=== PATIENT | female | born 1935 | race Caucasian/White ===

== ENCOUNTER 2019-07-05 14:20 | Outpatient (CLI) | payer MEDICARE, MEDICAID, SELFPAY ==
--- NOTE | 2019-07-05 14:33 | MM_ITS ---
WS: [id number] BILATERAL DIGITAL SCREENING MAMMOGRAPHY WITH CAD CLINICAL INFORMATION: SCREENING HISTORY: Screening mammogram. No current complaints. COMPARISON: January 12, 2017 and multiple prior mammograms dating back to 2012 TECHNIQUE: Bilateral CC and MLO views. FINDINGS: The breasts are composed of heterogeneous fibroglandular density tissue, which can limit the detectio n of small underlying mass lesions. Increasing spiculated dense focal asymmetric density posterior depth right breast inner quadrant near the chest wall. This appears slightly increased in size since 2017. Surgical excision was recommende d of this lesion in 2011 which was not performed. THIS LESION IS SUSPICIOUS AND RECOMMEND RIGHT DIAGN OSTIC MAMMOGRAM AND ULTRASOUND FOR FURTHER CHARACTERIZATION. Left breast is unchanged. Vascular calcification. MM/[place] [id number] IMPRESSION: BI-RADS: 0-Incomplete: Need additional imaging evaluation FOLLOW UP: Need Additional Imaging
== END 2019-07-05 14:21 | disposition home or self-care (01) ==
PROVIDERS: Family Provider Registered Nurse; PCP Registered Nurse; Visit Provider Registered Nurse
DX: Z12.31 Encounter for screening mammogram for malignant neoplasm of breast (principal)
CPT/HCPCS: 77067

== ENCOUNTER 2019-07-29 11:37 | Outpatient (CLI) | payer MEDICARE, MEDICAID, SELFPAY ==
--- NOTE | 2019-07-29 11:45 | US_ITS ---
WS: [id number] RIGHT DIGITAL MAMMOGRAPHY WITH CAD CLINICAL INFORMATION: ABNORMAL FINDING ON MAMMOGRAPHY COMPARISON: July 05, 2019 TECHNIQUE: 4 views of the right breast were obtained. FINDINGS: The right breast is composed of heterogeneous fibroglandular density tissue, which can limit the dete ction of small underlying mass lesions. Vascular calcification. Again seen is the spiculated focal asymmetric density posterior depth right breast inner quadrant manish r the chest wall. This persists on spot compression views. Ultrasound is pending. ULTRASOUND BREAST RIGHT TECHNIQUE: Ultrasound right breast focused area of concern. CLINICAL INFORMATION: ABNORMAL FINDING ON MAMMOGRAPHY COMPARISON: None. FINDINGS: Ultrasound right breast 11:00 position. Hypoechoic irregular taller than wide lesion at the 1:00 posi tion 5 cm from the nipple HIGHLY SUSPICIOUS FOR MALIGNANCY. Internal vascularity. RECOMMEND FURTHER E VALUATION WITH ULTRASOUND GUIDED BIOPSY. Additional hypoechoic well-circumscribed lesion at the 11:00 position measuring 4.8 x 3.8 x 4.9 mm is indeterminant and also recommend additional evaluation of this area with ultrasound-guided biopsy. US/US breast RT complete [id number] IMPRESSION: BI-RADS: 5-Highly Suggestive of Malignancy FOLLOW UP: US Guided Biopsy Recommended
== END 2019-07-29 11:38 | disposition home or self-care (01) ==
LOC: RADSHAW 11:42
PROVIDERS: Family Provider Family Medicine; PCP Registered Nurse; Visit Provider Registered Nurse
DX: R92.8 Other abnormal and inconclusive findings on diagnostic imaging of breast (principal); N64.89 Other specified disorders of breast
CPT/HCPCS: 76641; 77065

== ENCOUNTER 2021-09-24 12:15 | Observation (INO) | payer MEDICARE, MEDICAID, SELFPAY ==
[2021-09-24] VITALS (14 sets, daily range): BP systolic 94–138; BP diastolic 45–80; PULSE 64–113; RESP 15–23; TEMP 36.6–36.8; O2SAT 93–98; BMI 24.2
--- NOTE | 2021-09-24 12:20 | ECG_ITS ---
[facility] Test Date: 2021-09-24 Pat Name: Arleen Clinton Department: Room: Gender: Female Rn Call Center: : 1935 Requested By: Mehdi Perez Order Number: [id number] Shine MD: Teofilo Perez M.D. Measurements Intervals [place] Rate: 100 P: NV: QRS: -35 QRSD: 85 T: 68 QT: 350 QTc: 452 Interpretive Statements ATRIAL FIBRILLATION WITH RAPID VENTRICULAR RESPONSE WITH ABERRANT CONDUCTION OR VENTRICULAR PREMATURE COMPLEXES LEFT AXIS DEVIATION [QRS AXIS < -30] SEPTAL MYOCARDIAL INFARCTION , PROBABLY OLD [40+ ms Q WAVE IN V1/V2] Compared to ECG 10/25/2018 11:04:32 Aberrant conduction of supraventricular beat(s) now present Ventricular premature complex(es) now present Myocardial infarct finding now present Sinus rhythm no longer present ST (T wave) deviation no longer present Electronically Signed On 09-24-2021 22:44:20 CDT by Teofilo Perez M.D. [id number]
[2021-09-24] MEDS: dilTIAZem 60 mg Tablet PO (12:38)
[2021-09-24 12:45] LABS: Basophils % 0.5 %; Eosinophils # 0.1 10^3/uL (0.0-0.8); Eosinophils % 1.2 %; Hematocrit 36.4 % (37.0-47.0); Hemoglobin 11.9 g/dL (11.5-15.3); Lymphocytes # 0.8 10^3/uL (0.8-4.8); Lymphocytes % 10.6 %; Mean Corpuscular HGB Conc 32.7 g/dL (30.0-36.0); Mean Corpuscular Hemoglobin 28.5 pg (28.0-34.0); Mean Corpuscular Volume 87.3 fl (81-99); Mean Platelet Volume 11.4 fL (7.4-10.4); Monocytes # 0.7 10^3/uL (0.2-0.9); Monocytes % 9.5 %; Neutrophils # 5.67 10^3/uL (1.8-7.7); Neutrophils % 77.9 %; Nucleated Red Blood Cells % 0 %; Platelet Count 182 10^3/cmm (130-400); Red Blood Count 4.17 10^6/uL (4.1-5.3); Red Cell Distribution Width 13.1 % (12.1-15.1); White Blood Count 7.3 10^3/uL (4.0-10.0)
--- NOTE | 2021-09-24 12:50 | ED_ITS ---
HPI - Arrhythmia/Palpitations General: Chief Complaint: Arrhythmia/Palpitations Stated Complaint: WEAK, NEAR SYNCOPE Time Seen by Provider: 09/24/21 12:18 Source: patient Mode of arrival: EMS Limitations: no limitations History of Present Illness: 86-year-old female presents to the emergency room with complaints of rapid heart rate. She had a near syncopal episode and was feeling generally weak she ended up calling EMS on arrival though the EKG she was found to be in A. fib with RVR and was given 15 mg IV Cardizem. Her rate has been controlled and she is feeling much better however she is still in atrial fibrillation she denies any orthopnea denies any chest pain she had previously been diagnosed with A. fib in the past. He is not on any anticoagulants or anything for rate control. MD complaint: rapid heart beat, heart racing and irregular heart beat Onset (ago): hour(s) Duration: constant Severity: severe Context: occurred during rest Associated symptoms: Reports pre-syncope; Deny anxiety, cough, diaphoresis, muscle cramps, nausea, paresthesias, sense of impending doom, short of breath, syncope or vomiting Review of Systems Const: Denies: diaphoresis ENMT: Denies: throat pain, ear or mastoid pain, nasal discharge or nasal congestion Card: Reports: palpitations, irregular heart rhythm, lightheadedness, pre- syncope and dyspnea on exertion; Denies: chest pain, swelling of feet/ankles or syncope Resp: Denies: dyspnea, productive cough or non-productive cough GI: Denies: abdominal pain, nausea or vomiting : Denies: flank pain, difficulty voiding, dysuria, urinary frequency or u rinary urgency Musc: Denies: muscle cramps Skin/Breast: Denies: rash or pruritus Psych: Denies: anxiety PFS ED PFSH: Medical History COPD (chronic obstructive pulmonary disease) History of multiple pulmonary nodules likely benign, had bronchoscopic evaluation in 2018 HTN (hypertension) Hypothyroidism associated with surgical procedure Papillary thyroid carcinoma metastatic, history of surgery, radiation Surgical History History of cataract surgery History of radical neck dissection (~2018) right, for metastatic papillary thyroid carcinoma with split thickness skin graft History of thyroidectomy (~2004) Social History Smoking and tobacco status: former smoker Alcohol intake: never Physical Exam Const: GENERAL APPEARANCE: cooperative and comfortable ORIENTATIO N/CONSCIOUSNESS: Yes awake, Yes oriented to person, Yes oriented to place and Yes oriented to time HENMT: COMMON NORMALS: normocephalic, atraumatic and hearing grossly normal bilaterally HEAD & SCALP: normocephalic and atraumatic Neck/C-Spine: COMMON NORMALS: no JVD Resp: COMMON NORMALS: normal respiratory effort, No retractions, No use of accessory muscles and clear to auscultation bilaterally AUSCULTATION: clear to auscultation bilaterally Cardio: COMMON NORMALS: no JVD RATE: tachycardic RHYTHM: abnormal rhythm irregularly irregular GI: COMMON NORMALS: Soft to palpation and No hepatosplenomegaly present AUSCULTATION: Yes normoactive bowel sounds PALPATION: Yes Soft to palpation, No Tenderness to palpation present (GI), No Guarding due to palpation present (GI) and Yes No hepatosplenomegaly present Extremity: COMMON NORMALS: normal to inspection, capillary refill normal, no clubbing, cyanosis or edema, no calf tenderness and no pedal edema Neuro: SENSORIUM/ORIENTATION: Yes oriented to person, Yes oriented to place and Yes oriented to time Skin: COMMON NORMALS: no rashes or lesions noted GENERAL SKIN EXAM: no rashes or lesions noted Course Vital Signs: Vital signs: Vital Signs Temperature 98.2 F 09/24/21 12:23 Pulse Rate 94 09/24/21 13:04 Respiratory Rate 17 09/24/21 13:04 Blood Pressure 116/73 09/24/21 13:04 Pulse Oximetry 96 09/24/21 13:04 MDM - Arrhythmia/Palpitations Medical Decision Making New onset atrial fibrillation with RVR. Improved after EMS gave IV Cardizem which we backed up with p.o. Cardizem. Concerned about her syncope near syncopal episode as well as needing further work-up and evaluation for rate control discussed with hospitalist orders written. Medical Records I reviewed the patient's medical records. Lab Data I reviewed the patient's lab results. : 09/24/21 12:30 09/24/21 12:30 Laboratory Results WBC 7.3 10^3/uL (4.0-10.0) 09/24/21 12:30 RBC 4.17 10^6/uL (4.1-5.3) 09/24/21 12:30 Hgb 11.9 g/dL (11.5-15.3) 09/24/21 12:30 Hct 36.4 % (37.0-47.0) L 09/24/21 12:30 MCV 87.3 fl (81-99) 09/24/21 12:30 MCH 28.5 pg (28.0-34.0) 09/24/21 12: MCHC 32.7 g/dL (30.0-36.0) 09/24/21 12: RDW 13.1 % (12.1-15.1) 09/24/21 12: Plt Count 182 10^3/cmm (130-400) 09/24/21 12: MPV 11.4 fL (7.4-10.4) H 09/24/21 12:30 Neut % (Auto) 77.9 % 09/24/21 12:30 Lymph % (Auto) 10.6 % 09/24/21 12:30 [place] % (Auto) 9.5 % 09/24/21 12:30 Eos % (Auto) 1.2 % 09/24/21 12:30 Baso % (Auto) 0.5 % 09/24/21 12:30 Neut # (Auto) 5.67 10^3/uL (1.8-7.7) 09/24/21 12: Lymph # (Auto) 0.8 10^3/uL (0.8-4.8) 09/24/21 12:30 [place] # (Auto) 0.7 10^3/uL (0.2-0.9) 09/24/21 12:30 Eos # (Auto) 0.1 10^3/uL (0.0-0.8) 09/24/21 12:30 Baso # (Auto) 0.0 10^3/uL (0.0-0.1) 09/24/21 12:30 Nucleated RBC % (auto) 0 % 09/24/21 12:30 Nucleated RBCs # 0.0 /100WBC 09/24/21 12:30 Sodium 138 mmol/L (136-145) 09/24/21 12:30 Potassium 3.3 mmol/L (3.5-5.1) L 09/24/21 12:30 Chloride 98 mmol/L (98-107) 09/24/21 12:30 Carbon Dioxide 24 mmol/L (22-29) 09/24/21 12:30 Anion Gap 19.3 (5-19) H 09/24/21 12:30 BUN 10 mg/dL (8-23) 09/24/21 12:30 Creatinine 0.9 mg/dL (0.5-0.9) 09/24/21 12:30 GFR Calculation Not Reportable 09/24/21 12:30 Glucose 134 mg/dL (65-115) H 09/24/21 12:30 Calculated Osmolality 287 mOsm/kg (285-295) 09/24/21 12:30 Calcium 9.0 mg/dL (8.5-10.5) 09/24/21 12:30 Phosphorus 2.6 mg/dL (2.5-4.5) 09/24/21 12:30 Magnesium 1.8 mg/dL (1.7-2.3) 09/24/21 12:30 Total Bilirubin 0.5 mg/dL (0.15-1.2) 09/24/21 12:30 AST 17 U/L (0-32) 09/24/21 12:30 ALT 11 U/L (0-33) 09/24/21 12:30 Alkaline Phosphatase 65 IU/L (35-105) 09/24/21 12:30 Troponin T Baseline 24 ng/L (0-10) H 09/24/21 12:30 Total Protein 7.4 g/dL (6.6-8.7) 09/24/21 12:30 Albumin 3.9 g/dL (3.5-5.2) 09/24/21 12:30 Globulin 3.5 g/dL (1.3-4.6) 09/24/21 12:30 Lipase 30 U/L (13-60) 09/24/21 12:30 TSH 7.44 uIU/mL (0.27-4.20) H 09/24/21 12:30 Free T4 1.12 ng/dL (0.82-1.77) 09/24/21 12:30 Free T3 2.0 PG/ML (2.0-4.4) 09/24/21 12:30 Urine Color Yellow (Yellow) 09/24/21 12:46 Urine Appearance Hazy (CLEAR) A 09/24/21 12:46 Urine pH 7 (5-7) 09/24/21 12:46 Ur Specific [place] 1.005 (1.005-1.030) 09/24/21 12:46 Urine Protein Neg (Negative) 09/24/21 12:46 Urine Glucose (UA) Norm (Normal) 09/24/21 12:46 Urine Ketones Negative (Negative) 09/24/21 12:46 Urine Blood Neg (Negative) 09/24/21 12:46 Urine Nitrate Negative (Negative) 09/24/21 12:46 Urine Bilirubin Neg (Negative) 09/24/21 12:46 Urine Urobilinogen Neg mg/dL (Negative) 09/24/21 12:46 Ur Leukocyte Esterase Negative (Negative) 09/24/21 12:46 Urine RBC None /hpf (0-2) 09/24/21 12:46 Urine WBC None /hpf (0-5) 09/24/21 12:46 Ur Squamous Epith Cells Rare /hpf (0-5) 09/24/21 12:46 Amorphous Sediment Not Reportable 09/24/21 12:46 Urine Bacteria None /hpf (NONE) 09/24/21 12:46 Discharge Plan Discharge Patient Disposition: Admitted As Inpatient Clinical Impression: Atrial fibrillation, COPD (chronic obstructive pulmonary disease), HTN (hypertension), Papillary thyroid carcinoma, Hypothyroidism associated with surgical procedure Prescriptions: No Action cetirizine 10 mg tablet 10 mg PO DAILY@12 0RF hydrocodone-acetaminophen 5-325 mg tablet 1 tab PO Q4H PRN (Reason: Pain) 0RF Stool Softener-Stimulant Laxat 8.6-50 mg Tablet 1 tab PO .THREE TIMES A WEEK 0RF Vitamin B-12 1,000 mcg Tablet 1,000 mcg PO DAILY 0RF amlodipine 5 mg tablet 5 mg PO QPM 0RF levothyroxine 25 mcg tablet 25 mcg PO DAILY@05 0RF potassium chloride 20 mEq tablet,ER particles/crystals 20 meq PO BID 0RF FeroSul 325 mg (65 mg iron) tablet 325 mg PO DAILY@13 0RF montelukast 10 mg tablet 10 mg PO BEDTIME 0RF albuterol sulfate 90 mcg/actuation HFA aerosol inhaler 2 puff INHALATION Q6H PRN (Reason: Shortness Of Breath) 0RF losartan 100 mg tablet 100 mg PO QAM 0RF naproxen 500 mg tablet 500 mg PO BID PRN (Reason: Pain) 0RF Nasal Stewart (oxymetazoline) 0.05 % Stewart,Non-Aerosol 1 - 2 spray INTRANASAL PRN PRN (Reason: Allergy Symptoms) 0RF Clear Eyes Natural Tears 0.5-0.6 % Drops 1 drp ophthalmic (eye) PRN PRN (Reason: Dry Eyes) 0RF Breo Ellipta 100-25 mcg/dose blister with device 1 ea INHALATION DAILY 0RF Calcium 600 + D(3) 2 tab PO QAM 0RF Referrals: Yudy Alfred FNP [Primary Care Provider] - Coding Level of Care Code ED Charge Machine Operator for Chg Fwd Exam Comprehensive
[2021-09-24 13:23] LABS: Troponin(5th) Baseline 24 ng/L (0-10)
[2021-09-24 13:32] LABS: Alanine Aminotransferase 11 U/L (0-33); Albumin Level 3.9 g/dL (3.5-5.2); Alkaline Phosphatase 65 IU/L (35-105); Anion Gap 19.3 (5-19); Aspartate Amino Transferase 17 U/L (0-32); Blood Urea Nitrogen 10 mg/dL (8-23); Carbon Dioxide 24 mmol/L (22-29); Chloride 98 mmol/L (98-107); Creatinine Clr Calc Pharmacy 44.4802; Globulin 3.5 g/dL (1.3-4.6); Glucose 134 mg/dL (65-115); Lipase 30 U/L (13-60); Magnesium 1.8 mg/dL (1.7-2.3); Osmolality Calculated 287 mOsm/kg (285-295); Potassium 3.3 mmol/L (3.5-5.1); Sodium 138 mmol/L (136-145); Thyroid Stimulating Hormone 7.44 uIU/mL (0.27-4.20); Total Bilirubin 0.5 mg/dL (0.15-1.2); Total Protein 7.4 g/dL (6.6-8.7)
--- NOTE | 2021-09-24 13:40 | P.HP_ITS ---
Providers/Chief Complaint Admitting Physician: Zara Nielsen MD Primary Care Provider: JOE Stephenson Chief Complaint: WEAK, NEAR SYNCOPE History of Present Illness Arleen Clinton is a 86 year old female who presented to the emergency room with chief complaint of almost passing out. She was okay a couple of days ago. Yesterday she maybe felt tired but not really anything else. She has her own place where she stays by herself although is frequently with her daughter and Jose hall Anthony. Today she was by herself. She says that she felt okay lying in bed. As soon as she went to stand up she felt very dizzy and lightheaded. She had what she described as a smothering sensation that came over her associated with palpitations, breathing fast. No chest pain or back pain. Denied any diaphoresis, nausea, vomiting, abdominal pain or diarrhea. Did not have any acute paresthesias. She has been having intermittent numbness in her right upper extremity off and on for a while. Her daughter happened to call and indicated that Mrs. Clinton speech was slurred and she was not acting like herself. An ambulance was called. Upon arrival EMS reports that patient's heart rate was in the 170s. They gave her 15 mg of Cardizem IV. On arrival in the emergency room here today, initial heart rate was 109. Patient received 60 mg of oral Cardizem with improved heart rate to 80s to 90s. EKG noted atrial fibrillation with rapid ventricular response. Patient has no prior history of atrial fibrillation. She has a history of hypertension for which she is on medication but denies any known history of coronary artery disease. 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 Her levothyroxine dosing was changed last month because her thyroid levels were high. She is currently jose ing 25 mcg of levothyroxine daily. Initial troponin was 24. Potassium was slightly low at 3.3. She does chronically take potassium replacement. She has had recent cough productive of sputum. Has known chronic bronchitis and asthma. Cough has probably been more than usual lately along with some allergy symptoms but denies any wheezing. On further review it was learned that patient had a near syncopal, possibly syncopal episode, where she blacked out last month although at that time denies having had any palpitations. It sounds like that was also associated with a position change. Review of Systems Const: Reports: other (still drives); Denies: fever(s), chills, change in appetite or change in weight Eyes: Denies: change in vision ENMT: Reports: nasal congestion (Allergies); Denies: throat pain Card: Reports: palpitations, irregular heart rhythm, lightheadedness and pre- syncope; Denies: chest pain, edema, dyspnea on exertion or orthopnea Resp: Reports: dyspnea and productive cough; Denies: non-productive cough, wheezing, pain on inspiration, hemoptysis or chest congestion GI: Denies: abdominal pain, nausea, vomiting, diarrhea, constipation, h ematochezia or melena : Denies: difficulty voiding or hematuria Musc: Reports: neck pain (site of prior right neck dissection gone ), joint pain (none new) and limited range of motion (right shoulder); Denies: extremity swelling Skin/Breast: Reports: nail changes (big toenails both feet are bruised , no p ain) and other (soft tissue lump left shoulder upper arm at site of prior hepatitis shot); Denies: rash or pruritus Neuro: Reports: numbness in extremities (right upper extremity); Denies: headache(s), weakness in extremities or difficulty walking Psych: Denies: anxiety or depression Endo: Reports: cold intolerance and heat intolerance; Denies: excessive sweating Teddy/Lymph: Reports: easy bruising; Denies: easy bleeding Medications/Allergies Home Medications Medication Instructions Recorded Confirmed Last Taken Type Calcium 600 + D(3) 2 tab PO QAM 09/24/21 09/24/21 09/24/21 10:30 History albuterol sulfate 90 mcg/actuation 2 puff INHALATION Q6H PRN 09/24/21 09/24/21 Unknown History aerosol inhaler amlodipine 5 mg tablet 5 mg PO QPM 09/24/21 09/24/21 09/23/21 History cetirizine 10 mg tablet 10 mg PO DAILY@12 09/24/21 09/24/21 09/23/21 History cyanocobalamin (vitamin B-12) 1,000 mcg PO DAILY 09/24/21 09/24/21 09/23/21 History 1,000 mcg tablet (Vitamin B-12) ferrous sulfate 325 mg (65 mg 325 mg PO DAILY@13 09/24/21 09/24/21 09/23/21 History iron) tablet (FeroSul) fluticasone furoate 100 1 ea INHALATION DAILY 09/24/21 09/24/21 Unknown History mcg-vilanterol 25 mcg/dose inhalation powder (Breo Ellipta) hydrocodone 5 mg-acetaminophen 325 1 tab PO Q4H PRN 09/24/21 09/24/21 Unknown History mg tablet levothyroxine 25 mcg tablet 25 mcg PO DAILY@05 09/24/21 09/24/21 09/24/21 History losartan 100 mg tablet 100 mg PO QAM 09/24/21 09/24/21 09/24/21 History montelukast 10 mg tablet 10 mg PO BEDTIME 09/24/21 09/24/21 09/23/21 History naproxen 500 mg tablet 500 mg PO BID PRN 09/24/21 09/24/21 Unknown History oxymetazoline 0.05 % nasal spray 1 - 2 spray INTRANASAL PRN PRN 09/24/21 09/24/21 Unknown History (Nasal [place] (oxymetazoline)) polyvinyl alcohol-povidone 0.5 1 drp OPHTHALMIC (EYE) PRN PRN 09/24/21 09/24/21 Unknown History %-0.6 % eye drops (Clear Eyes Natural Tears) potassium chloride 20 mEq 20 meq PO BID 09/24/21 09/24/21 09/23/21 History tablet,extended release(part/cryst) sennosides 8.6 mg-docusate sodium 1 tab PO .THREE TIMES A WEEK 09/24/21 09/24/21 09/22/21 History 50 mg tablet (Stool Softener-Stimulant Laxative) Allergies Allergy/AdvReac Type Severity Reaction Status Date / Time Penicillins Allergy ALGY-Swell Verified 09/24/21 12:59 Lip/Tongue/Throat Sulfa (Sulfonamide Allergy ALGY-Swell Verified 09/24/21 12:59 Antibiotics) Lip/Tongue/Throat PFSH Acute PFSH: Medical History (Updated 09/24/21 @ 15:43 by Zara Nielsen MD) Asthma Chronic bronchitis Has home oxygen, uses as needed COVID-19 vaccine administered 2 doses Moderna Former smoker, stopped smoking in distant past 3 para 2 with one miscarriage History of multiple pulmonary nodules likely benign, had bronchoscopic evaluation in 2018 HTN (hypertension) 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, history of surgery, radiation and radioactive iodine treatment Surgical History (Updated 09/24/21 @ 13:55 by Zara Nielsen MD) History of cataract surgery History of radical neck dissection (~2018) right, for metastatic papillary thyroid carcinoma with split thickness skin graft History of thyroidectomy (~2004) Social History (Updated 09/24/21 @ 13:37 by Mehdi Lopez DO) Smoking and tobacco status: former smoker Alcohol intake: never Vitals/I&O/Wt Last Vital Signs Temp 98.2 F 09/24/21 12:23 Pulse 94 09/24/21 13:04 Resp 17 09/24/21 13:04 BP 116/73 09/24/21 13:04 Pulse Ox 96 09/24/21 13:04 Weight last 48 hrs Weight 68.039 kg Physical Exam Narrative: Constitutional: Awake and alert, able to provide history, looks younger than stated age HEENT: Normocephalic, atraumatic, pupils are equal reactive, extraocular movements intact, nasopharynx is clear, oropharynx with dry mucous membranes Neck: Surgical changes most prominently noted on the right neck but also anteriorly, decreased sensation to touch Respiratory: Clear to auscultation bilaterally without any rales rhonchi or wheezes noted, not tachypneic Cardiovascular: Regular alternating with irregularly irregular rhythm during the course of my examination, no murmurs noted, 2+ peripheral pulses Abdomen: Soft, nontender, positive bowel sounds Extremities: No pitting edema or calf tenderness Skin: Discoloration of the toenail on each foot right more so than left, chronic sun exposure changes noted in sun exposed areas, skin is dry, no rashes noted, some erythema in the general area of her previous neck surgery, soft tissue mass noted to the left shoulder/arm, nontender without redness Neuro: Speech clear, face symmetric, 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 equal in both upper remedies, strength is equal with foot pumps, no abnormal movements, decreased sensation in the right neck area extending over the shoulder Psych: Normal affect Data : 09/24/21 12:30 09/24/21 12:30 Other Labs: Laboratory Results WBC 7.3 10^3/uL (4.0-10.0) 09/24/21 12:30 RBC 4.17 10^6/uL (4.1-5.3) 09/24/21 12:30 Hgb 11.9 g/dL (11.5-15.3) 09/24/21 12:30 Hct 36.4 % (37.0-47.0) L 09/24/21 12:30 MCV 87.3 fl (81-99) 09/24/21 12:30 MCH 28.5 pg (28.0-34.0) 09/24/21 12: MCHC 32.7 g/dL (30.0-36.0) 09/24/21 12: RDW 13.1 % (12.1-15.1) 09/24/21 12: Plt Count 182 10^3/cmm (130-400) 09/24/21 12: MPV 11.4 fL (7.4-10.4) H 09/24/21 12: Neut % (Auto) 77.9 % 09/24/21 12: Lymph % (Auto) 10.6 % 09/24/21 12:30 [place] % (Auto) 9.5 % 09/24/21 12:30 Eos % (Auto) 1.2 % 09/24/21 12:30 Baso % (Auto) 0.5 % 09/24/21 12: Neut # (Auto) 5.67 10^3/uL (1.8-7.7) 09/24/21 12: Lymph # (Auto) 0.8 10^3/uL (0.8-4.8) 09/24/21 12:30 [place] # (Auto) 0.7 10^3/uL (0.2-0.9) 09/24/21 12:30 Eos # (Auto) 0.1 10^3/uL (0.0-0.8) 09/24/21 12: Baso # (Auto) 0.0 10^3/uL (0.0-0.1) 09/24/21 12:30 Nucleated RBC % (auto) 0 % 09/24/21 12:30 Nucleated RBCs # 0.0 /100WBC 09/24/21 12:30 Sodium 138 mmol/L (136-145) 09/24/21 12:30 Potassium 3.3 mmol/L (3.5-5.1) L 09/24/21 12:30 Chloride 98 mmol/L (98-107) 09/24/21 12:30 Carbon Dioxide 24 mmol/L (22-29) 09/24/21 12:30 Anion Gap 19.3 (5-19) H 09/24/21 12:30 BUN 10 mg/dL (8-23) 09/24/21 12:30 Creatinine 0.9 mg/dL (0.5-0.9) 09/24/21 12:30 GFR Calculation Not Reportable 09/24/21 12:30 Glucose 134 mg/dL (65-115) H 09/24/21 12:30 Calculated Osmolality 287 mOsm/kg (285-295) 09/24/21 12:30 Calcium 9.0 mg/dL (8.5-10.5) 09/24/21 12:30 Magnesium 1.8 mg/dL (1.7-2.3) 09/24/21 12:30 Total Bilirubin 0.5 mg/dL (0.15-1.2) 09/24/21 12:30 AST 17 U/L (0-32) 09/24/21 12:30 ALT 11 U/L (0-33) 09/24/21 12:30 Alkaline Phosphatase 65 IU/L (35-105) 09/24/21 12:30 Troponin T Baseline 24 ng/L (0-10) H 09/24/21 12:30 Total Protein 7.4 g/dL (6.6-8.7) 09/24/21 12:30 Albumin 3.9 g/dL (3.5-5.2) 09/24/21 12:30 Globulin 3.5 g/dL (1.3-4.6) 09/24/21 12:30 Lipase 30 U/L (13-60) 09/24/21 12:30 TSH 7.44 uIU/mL (0.27-4.20) H 09/24/21 12:30 A&P Assessment and plan (1) Near syncope: Orthostasis versus arrhythmia versus hypoxemia appear to be the cause based on currently available information though cannot presently rule out other secondary etiologies Status: Acute (2) Atrial fibrillation: New onset, from description very possible that onset was today when she stacy from a supine position to standing, though she does describe a near syncopal/s yncopal episode last month not associated with palpitations. Intermittently converting to sinus rhythm in the emergency room only to return to atrial fibrillation though rate controlled short time later. Status: Acute (3) HTN (hypertension): With noted low range of normal blood pressures here after receiving diltiazem Chronically on amlodipine and losartan Status: Chronic Qualifiers: Hypertension type: primary hypertension Qualified Code(s): I10 - Essential (primary) hypertension (4) Hypokalemia: On chronic potassium replacement twice daily Status: Acute (5) Hypothyroidism associated with surgical procedure: TSH 7.44, higher than usually recommended post thyroidectomy due to thyroid cancer On 25 micrograms of levothyroxine at home currently, dose changed by PCP last month (from a small feng pill to current one though details otherwise unknown) Status: Chronic (6) Papillary thyroid carcinoma: Originally diagnosed with recurrence in 2019, considered stage IV and was treated with surgery, radiation and radioactive iodine Status: Chronic (7) Chronic bronchitis: Remote smoker and also with a history of an asthmatic component, chronically on Breo Ellipta and as needed albuterol, not presently definitely acute by examination although sounds like she has been having increasing allergy symptoms lately associated with increased cough that could be contributing to development of #2. Has oxygen as needed at home. Status: Chronic Qualifiers: Chronic bronchitis type: mucopurulent Qualified Code(s): J41.1 - Mucopurulent chronic bronchitis (8) Advanced age: Status: Chronic Plan Observation admission Telemetry monitoring Serial cardiac enzymes and EKGs Check BNP and D-dimer Continue oral diltiazem presently Check orthostatic vital signs Echocardiogram Hold home amlodipine and losartan though may want to consider reinitiation of a lower dose of losartan pending blood pressures during course of hospital stay Replace potassium Check phosphorus level, magnesium was 1.8 Check free T3 and free T4 I have requested prior TSH levels from primary care provider's office along with dosage changes for levothyroxine 2 view chest x-ray Breathing treatments if needed Continue home Singulair and cetirizine PT evaluation Fall precautions Tylenol and decreased frequency of home hydrocodone for pain Continue usual home bowel regimen Lovenox presently for DVT prophylaxis Began discussion with patient regarding oral anticoagulation outpatient such as Eliquis or warfarin secondary to atrial fibrillation. [id number] score is 4. If does not maintain sinus rhythm, given her good activity level and intact cognition would be a candidate for anticoagulation. If anticoagulation long-term initiated would recommend discontinuation of home naproxen Supportive care otherwise Findings, concerns and plans were discussed with patient as well as her daughter and both were given an opportunity to ask questions Anticipate discharge home with follow-up to primary care provider. Patient lives alone but also spends a fair amount of time staying with her daughter and would be agreeable to disposition to either location though indicates she does want to continue driving and such. Full code at least initially according to discussion with patient and her daughter though Mrs. Clinton indicated she would not want long-term resuscitative efforts. Attestations Medical Necessity Statement*: Anticipated stay less than two midnights inpatient presenting with new onset atrial fibrillation who has started to show signs of converting to sinus rhythm on treatment initiated to date. Plans are as noted above. 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
[2021-09-24 13:41] LABS: Add Urine Microscopic? YES; Bilirubin Urine Neg (Negative); Blood Urine Neg (Negative); Glucose Urine UA Norm (Normal); Ketones Urine Negative (Negative); Leukocyte Esterase Urine Negative (Negative); Nitrate Urine Negative (Negative); Protein Urine Neg (Negative); Specific Gravity, Urine 1.005 (1.005-1.030); Squamous Epithelial Cell Urine RARE /hpf (0-5); Urine Appearance Hazy (CLEAR); Urine Color Yellow (Yellow); Urobilinogen Urine Neg (Negative); pH Urine 7 (5-7)
[2021-09-24 13:42] LABS: Add Urine Culture? No
--- NOTE | 2021-09-24 14:04 | XR_ITS ---
WS: [id number] XR chest 2V insp/exp [id number] REASON FOR EXAM: new afib with rvr, history thyroid cancer/pul monary nodules FINDINGS: Moderately tortuous thoracic aorta without aneurysmal dilatation. Heart size at the upper limits of n ormal. Multiple small lower lobe pulmonary nodules bilaterally with a 3 cm nodule overlying the left hilum. No findings of congestive heart failure. No pneumothorax. Mild to moderate changes of degenerative spondylosis in the mid and lower thoracic spine. XR/XR chest 2V insp/exp [id number] IMPRESSION: Multiple pulmonary nodules. By history metastatic thyroid cancer.
--- NOTE | 2021-09-24 14:20 | ECG_ITS ---
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 Measurements Intervals [place] Rate: 63 P: 70 IN: 145 QRS: -9 QRSD: 89 T: 73 QT: 401 QTc: 412 Interpretive Statements SINUS RHYTHM NONSPECIFIC T-WAVE ABNORMALITY Compared to ECG 09/24/2021 12:35:48 T-wave abnormality now present Atrial fibrillation no longer present Aberrant conduction of supraventricular beat(s) no longer present Ventricular premature complex(es) no longer present Left-axis deviation no longer present Myocardial infarct finding no longer present Electronically Signed On 09-24-2021 23:01:08 CDT by Teofilo Perez M.D. [id number]
[2021-09-24 14:41] LABS: Phosphorus 2.6 mg/dL (2.5-4.5)
[2021-09-24 14:48] LABS: Free T4 Free Thyroxine 1.12 ng/dL (0.82-1.77)
--- NOTE | 2021-09-24 14:50 | USCV_ITS ---
Arleen Clinton Age: 86 Gender: F : 1935 Exam Date: 09/24/2021 16:30 Ordering Phys: Zara Nielsen MD Technologist: Davon Montes Exam Location: [facility] – [place] Indication: Atrial fibrillation BP: 94 / 64 HR: 59 Rhythm: Sinus Technical Quality: Adequate MEASUREMENTS (Male / Female) Normal Values 2D ECHO LV Diastolic Diameter PLAX 4.9 cm 4.2 - 5.9 / 3.9 - 5.3 cm LV Systolic Diameter PLAX 3.5 cm IVS Diastolic Thickness 0.9 cm 0.6 - 1.0 / 0.6 - 0.9 cm IVS Systolic Thickness 1.0 cm LVPW Diastolic Thickness 1.1 cm 0.6 - 1.0 / 0.6 - 0.9 cm LVPW Systolic Thickness 1.8 cm LVOT Diameter 2.0 cm LV Ejection Fraction 2D Teich 55.5 % LV Ejection Fraction MOD 2C 63.8 % LV Ejection Fraction 2C AL 64.3 % LA Diameter 2.8 cm LA Width 3.2 cm LA Height 4.3 cm RA Width 3.5 cm RA Height 4.1 cm Aorta at Sinotubular Diameter 2.8 cm M-MODE Aortic Annulus Diameter 3.0 cm LA Ao Ratio MM 0.8 MV E Point Septal Separation 1.0 cm DOPPLER AV Peak Velocity 109.0 cm/s LVOT Peak Velocity 90.0 cm/s AV Area Cont Eq vti 2.7 cm squared AV Area Cont Eq pk 2.6 cm squared MV Area PHT 3.9 cm squared Mitral E to A Ratio 1.0 MV E' Velocity 34.5 cm/s Mitral E to MV E' Ratio 1.8 Mitral E to LV E' Lateral Ratio 10.1 Mitral E to LV E' Septal Ratio 1.0 TR Peak Velocity 241.3 cm/s TR Peak Gradient 23.3 mmHg TR Mean Velocity 197.8 cm/s TR Mean Gradient 15.8 mmHg TR Velocity Time Integral 70.9 cm Right Atrial Pressure 3.0 mmHg Pulmonary Artery Systolic Pressu 26.3 mmHg RV Acceleration Time 0.1 s RV Ejection Time 0.3 s RV AcT/ET 0.3 FINDINGS Left Ventricle Normal left ventricular size, systolic function and wall thickness, with no regional wall motion abnormalities. Left ventricular ejection fraction is estimated at 60 %. Normal diastolic function. Right Ventricle Normal right ventricular size and systolic function. RVSP could not be calculated due to incomplete tricuspid regurgitation velocity profile. Right Atrium Normal right atrial size. Prominent eustachian valve in the right atrium (normal variant). Left Atrium Normal left atrial size. Mitral Valve Mild mitral annular calcification. Thickened mitral valve. No mitral valve stenosis. Trace mitral valve regurgitation. Aortic Valve Structurally normal trileaflet aortic valve. No aortic valve stenosis. No aortic valve regurgitation. Tricuspid Valve Structurally normal tricuspid valve. No tricuspid valve stenosis. Trace tricuspid valve regurgitation. Pulmonic Valve Structurally normal pulmonic valve. No pulmonary valve stenosis. Trace pulmonary valve regurgitation. Pericardium No pericardial effusion. Aorta Normal size aortic root and proximal ascending aorta. Normal- sized inferior vena cava. CONCLUSIONS 1. Normal left ventricular size, systolic function and wall thickness, with no regional wall motion abnormalities. Left ventricular ejection fraction is estimated at 60 %. Normal diastolic function. 2. Normal right ventricular size and systolic function. 3. Mild mitral annular calcification. Thickened mitral valve. 4. No prior similar studies to compare. Coleen Farrell MD (Electronically Signed) Final Date: 24 September 2021 18:38 S
[2021-09-24 15:39] LABS: NT Pro B Type Natriuretic Pept 600 pg/mL (0-450)
[2021-09-24] MEDS: potassium chloride ER 20 mEq Tablet PO (17:39)
[2021-09-24] MEDS: potassium chloride oral liq 20 mEq/15 mL UDC PO (17:39)
[2021-09-24] MEDS: dilTIAZem 30 mg Tablet PO ×2 (17:39→23:30)
[2021-09-24] MEDS: enoxaparin 40 mg/0.4 mL Syringe SUBCUT (17:40)
[2021-09-24] MEDS: sodium chlor 0.9% + KCl 20 mEq 20 MEQ/1,000 ML BAG 100 MEQ IV ×2 (17:42→23:31)
--- NOTE | 2021-09-24 18:20 | ECG_ITS ---
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 Measurements Intervals [place] Rate: 65 P: 79 AR: 143 QRS: 4 QRSD: 85 T: 56 QT: 444 QTc: 463 Interpretive Statements SINUS RHYTHM NONSPECIFIC T-WAVE ABNORMALITY Compared to ECG 09/24/2021 15:15:16 No significant changes Electronically Signed On 09-24-2021 23:01:52 CDT by Teofilo Perez M.D. [email or web address] [id number]
[2021-09-24 20:06] LABS: Troponin 5 6HR 33.41 ng/L (0-10)
[2021-09-24 20:10] LABS: Troponin 5 6HR Delta 9.41 ng/L (0-12)
[2021-09-24] MEDS: calcium carb-vit d 600mg/400unit 1 Tablet 1 EACH PO (20:12)
[2021-09-24] MEDS: montelukast sodium 10 mg Tablet PO (20:12)
[2021-09-25] VITALS (10 sets, daily range): BP systolic 119–146; BP diastolic 60–72; PULSE 60–82; RESP 17–19; TEMP 36.6–36.7; O2SAT 93–97
[2021-09-25 04:02] LABS: Anion Gap 15.1 (5-19); Blood Urea Nitrogen 11 mg/dL (8-23); Calcium 8.5 mg/dL (8.5-10.5); Carbon Dioxide 24 mmol/L (22-29); Chloride 105 mmol/L (98-107); Creatinine Clr Calc Pharmacy 44.4802; Glucose 106 mg/dL (65-115); Osmolality Calculated 290 mOsm/kg (285-295); Phosphorus 2.9 mg/dL (2.5-4.5); Potassium 4.1 mmol/L (3.5-5.1); Sodium 140 mmol/L (136-145)
[2021-09-25] MEDS: levothyroxine 25 mcg Tablet PO (05:11)
[2021-09-25] MEDS: dilTIAZem 30 mg Tablet PO ×2 (05:11→12:25)
[2021-09-25] MEDS: losartan 50 mg Tablet PO (09:04)
[2021-09-25] MEDS: calcium carb-vit d 600mg/400unit 1 Tablet 1 EACH PO (09:04)
[2021-09-25] MEDS: cyanocobalamin 1,000 mcg Tablet 1000 MCG PO (09:06)
[2021-09-25] MEDS: potassium chloride ER 20 mEq Tablet PO (09:07)
--- NOTE | 2021-09-25 11:58 | P.DS_ITS ---
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 (6) 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 She was okay a couple of days ago.? Yesterday she maybe felt tired but not really anything else.? She has her own place where she stays by herself although is frequently with her daughter and Ubaldo Cruz.? Today she was by herself.? She says that she felt okay lying in bed.? As soon as she went to stand up she felt very dizzy and lightheaded.? She had what she described as a smothering sensation that came over her associated with palpitations, breathing fast.? No chest pain or back pain.? Denied any diaphoresis, nausea, vomiting, abdominal pain or diarrhea.? Did not have any acute paresthesias.? She has been having intermittent numbness in her right upper extremity off and on for a while.? Her daughter happened to call and indicated that Mrs. Clinton speech was slurred and she was not acting like herself.? An ambulance was called.? Upon arrival EMS reports that patient's heart rate was in the 170s.? They gave her 15 mg of Cardizem IV.? On arrival in the emergency room here today, initial heart rate was 109.? Patient received 60 mg of oral Cardizem with improved heart rate to 80s to 90s.? EKG noted atrial fibrillation with rapid ventricular response.? Patient has no prior history of atrial fibrillation.? She has a history of hypertension for which she is on medication but denies any known history of coronary artery disease.? She does have a history of thyroid papillary carcinoma status post total thyroidectomy years ago and is on chronic thyroid replacement.? Her levothyroxine dosing was changed last month because her thyroid levels were high.? She is currently taking 25 mcg of levothyroxine daily.? Initial troponin was 24.? Potassium was slightly low at 3.3.? She does chronically take potassium replacement.? She has had recent cough productive of sputum.? Has known chronic bronchitis and asthma.? Cough has probably been more than usual lately along with some allergy symptoms but denies any wheezing.? On further review it was learned that patient had a near syncopal, possibly syncopal episode, where she blacked out last month although at that time denies having had any palpitations.? It sounds like that was also associated with a position change. Hospital course: She was admitted for management of new onset A. fib with RVR, near syncope, For her A. fib with RVR she received Cardizem bolus and was given Cardizem, she converted back to normal sinus rhythm, And was discharged on Cardizem CD 120 mg p.o. daily, heart rate was well controlled, 2D echo: Showed normal LV size and systolic function, no RWMA , EF of 60% normal diastolic function, normal RV size and systolic function,Mild mitral annular calcification. Thickened mitral valve. Patient advises [id number] score is 4: Currently sees a candidate for anticoagulation, given her age, currently she wants to think about starting on anticoagulation, she is comfortable using aspirin for now, no anticoagulation on discharge has been started. Near syncope likely secondary to A. fib with RVR, she was also orthostatic positive during the hospital stay, responded well to IV hydration, orthostatic vital signs were negative at the time of discharge, no similar event during the hospital stay. For history of hypertension: She is on amlodipine and losartan at home, amlodipine have been discontinued, losartan has been kept on hold for now Patient has been asked to monitor her blood pressure at home, and continue with Cardizem for now, as her blood pressure is pretty well controlled on Cardizem, she has been asked to keep a blood pressure log, and follow-up with her primary care physician regarding further blood pressure medication optimization.for her history of thyroid papillary carcinoma status post total thyroidectomy years ago and is on chronic thyroid replacement. TSH: 7.44, free T4 1.12, free T3 2: Patient has been continued on levothyroxine p.o. 25 mcg daily. Patient overall has responded well to above medical management and is being discharged in stable condition to home, she will continue to follow with her primary care physician as an outpatient. Physical Exam Const: COMMON NORMALS: patient oriented x3 HENMT: COMMON NORMALS: normocephalic and atraumatic HEAD & SCALP: normoc ephalic and atraumatic Chest: CHEST: Yes Symmetrical chest wall rise Resp: COMMON NORMALS: normal respiratory effort, No retractions, No use of accessory muscles and clear to auscultation bilaterally EFFORT & INSPECTION: Yes symmetric chest movement AUSCULTATION: clear to auscultation bilaterally Cardio: COMMON NORMALS: regular rate, regular rhythm, S1 normal heart sound present, S2 normal heart sound present, No gallops present (Cardio), No murmurs present (Cardio), No rub (Cardio) and Peripheral pulses 2+ throughout RATE: regular rate RHYTHM: regular rhythm HEART SOUNDS: S1 normal heart sound present and S2 normal heart sound present PERIPHERAL PULSES: Peripheral pu lses 2+ throughout GI: COMMON NORMALS: Normal to inspection, nondistended, normoactive bowel sounds present, Soft to palpation, non-tender, No hepatosplenomegaly present and no masses AUSCULTATION: Yes normoactive bowel sounds PALPATION: Yes Soft to palpation and Yes No hepatosplenomegaly present RECTAL EXAM: deferred Extremity: COMMON NORMALS: no clubbing, cyanosis or edema and no pedal edema Neuro: COMMON NORMALS: patient oriented x3 Discharge Data Studies Completed and Pending Completed Studies During Hospitalization Category Date Time Status CXRIE [XR chest 2V insp/exp [id number]] Urgent Exams 09/24/21 14:04 Completed CV. echo complete* [id number] Routine Ultrasound 09/24/21 14:50 Completed Radiology Impressions Chest X-Ray 09/24/21 14:04 IMPRESSION: Multiple pulmonary nodules. By history metastatic thyroid cancer. Laboratory Results WBC 7.3 10^3/uL (4.0-10.0) 09/24/21 12:30 RBC 4.17 10^6/uL (4.1-5.3) 09/24/21 12:30 Hgb 11.9 g/dL (11.5-15.3) 09/24/21 12:30 Hct 36.4 % (37.0-47.0) L 09/24/21 12:30 MCV 87.3 fl (81-99) 09/24/21 12:30 MCH 28.5 pg (28.0-34.0) 09/24/21 12: MCHC 32.7 g/dL (30.0-36.0) 09/24/21 12: RDW 13.1 % (12.1-15.1) 09/24/21 12:30 Plt Count 182 10^3/cmm (130-400) 09/24/21 12: MPV 11.4 fL (7.4-10.4) H 09/24/21 12:30 Neut % (Auto) 77.9 % 09/24/21 12:30 Lymph % (Auto) 10.6 % 09/24/21 12:30 [place] % (Auto) 9.5 % 09/24/21 12:30 Eos % (Auto) 1.2 % 09/24/21 12:30 Baso % (Auto) 0.5 % 09/24/21 12:30 Neut # (Auto) 5.67 10^3/uL (1.8-7.7) 09/24/21 12:30 Lymph # (Auto) 0.8 10^3/uL (0.8-4.8) 09/24/21 12:30 [place] # (Auto) 0.7 10^3/uL (0.2-0.9) 09/24/21 12:30 Eos # (Auto) 0.1 10^3/uL (0.0-0.8) 09/24/21 12:30 Baso # (Auto) 0.0 10^3/uL (0.0-0.1) 09/24/21 12:30 Nucleated RBC % (auto) 0 % 09/24/21 12:30 Nucleated RBCs # 0.0 /100WBC 09/24/21 12:30 D-Dimer 0.80 ug/mIFEU (0-0.59) H 09/24/21 12:30 Sodium 140 mmol/L (136-145) 09/25/21 02:52 Potassium 4.1 mmol/L (3.5-5.1) 09/25/21 02:52 Chloride 105 mmol/L (98-107) 09/25/21 02:52 Carbon Dioxide 24 mmol/L (22-29) 09/25/21 02:52 Anion Gap 15.1 (5-19) 09/25/21 02:52 BUN 11 mg/dL (8-23) 09/25/21 02:52 Creatinine 0.9 mg/dL (0.5-0.9) 09/25/21 02:52 GFR Calculation Not Reportable 09/25/21 02:52 Glucose 106 mg/dL (65-115) 09/25/21 02:52 Calculated Osmolality 290 mOsm/kg (285-295) 09/25/21 02:52 Calcium 8.5 mg/dL (8.5-10.5) 09/25/21 02:52 Phosphorus 2.9 mg/dL (2.5-4.5) 09/25/21 02:52 Magnesium 2.0 mg/dL (1.7-2.3) 09/25/21 02:52 Total Bilirubin 0.5 mg/dL (0.15-1.2) 09/24/21 12:30 AST 17 U/L (0-32) 09/24/21 12:30 ALT 11 U/L (0-33) 09/24/21 12:30 Alkaline Phosphatase 65 IU/L (35-105) 09/24/21 12:30 Troponin T Baseline 24 ng/L (0-10) H 09/24/21 12:30 Troponin T 120 Minute 29.80 ng/L (0-10) H 09/24/21 14:29 Delta Troponin T 5.80 ABS# (0-10) 09/24/21 14:29 Troponin T Hi Sens 6Hr 33.41 ng/L (0-10) H 09/24/21 19:06 Troponin T Hi Sens 6Hr Delta 9.41 ng/L (0-12) 09/24/21 19:06 NT-Pro-B Natriuret Pep 600 pg/mL (0-450) H 09/24/21 12:30 Total Protein 7.4 g/dL (6.6-8.7) 09/24/21 12:30 Albumin 3.9 g/dL (3.5-5.2) 09/24/21 12:30 Globulin 3.5 g/dL (1.3-4.6) 09/24/21 12:30 Lipase 30 U/L (13-60) 09/24/21 12:30 TSH 7.44 uIU/mL (0.27-4.20) H 09/24/21 12:30 Free T4 1.12 ng/dL (0.82-1.77) 09/24/21 12:30 Free T3 2.0 PG/ML (2.0-4.4) 09/24/21 12:30 Urine Color Yellow (Yellow) 09/24/21 12:46 Urine Appearance Hazy (CLEAR) A 09/24/21 12:46 Urine pH 7 (5-7) 09/24/21 12:46 Ur Specific [place] 1.005 (1.005-1.030) 09/24/21 12:46 Urine Protein Neg (Negative) 09/24/21 12:46 Urine Glucose (UA) Norm (Normal) 09/24/21 12:46 Urine Ketones Negative (Negative) 09/24/21 12:46 Urine Blood Neg (Negative) 09/24/21 12:46 Urine Nitrate Negative (Negative) 09/24/21 12:46 Urine Bilirubin Neg (Negative) 09/24/21 12:46 Urine Urobilinogen Neg mg/dL (Negative) 09/24/21 12:46 Ur Leukocyte Esterase Negative (Negative) 09/24/21 12:46 Urine RBC None /hpf (0-2) 09/24/21 12:46 Urine WBC None /hpf (0-5) 09/24/21 12:46 Ur Squamous Epith Cells Rare /hpf (0-5) 09/24/21 12:46 Amorphous Sediment Not Reportable 09/24/21 12:46 Urine Bacteria None /hpf (NONE) 09/24/21 12:46 Vitals Last Vital Signs Temp 98.0 F 09/25/21 07:41 Pulse 72 09/25/21 10:16 Resp 18 09/25/21 10:16 BP 128/60 09/25/21 09:04 Pulse Ox 93 09/25/21 10:16 Discharge Plan Discharge Patient Disposition: Home Condition: Stable Prescriptions: New Cardizem CD 120 mg capsule,extended release 24hr 120 mg PO DAILY Qty: 30 3RF aspirin 81 mg tablet,delayed release (DR/EC) 81 mg PO DAILY Qty: 30 1RF Continued cetirizine 10 mg tablet 10 mg PO DAILY@12 0RF hydrocodone-acetaminophen 5-325 mg tablet 1 tab PO Q4H PRN (Reason: Pain) 0RF Stool Softener-Stimulant Laxat 8.6-50 mg Tablet 1 tab PO .THREE TIMES A WEEK 0RF Vitamin B-12 1,000 mcg Tablet 1,000 mcg PO DAILY 0RF levothyroxine 25 mcg tablet 25 mcg PO DAILY@05 0RF potassium chloride 20 mEq tablet,ER particles/crystals 20 meq PO BID 0RF FeroSul 325 mg (65 mg iron) tablet 325 mg PO DAILY@13 0RF montelukast 10 mg tablet 10 mg PO BEDTIME 0RF albuterol sulfate 90 mcg/actuation HFA aerosol inhaler 2 puff INHALATION Q6H PRN (Reason: Shortness Of Breath) 0RF naproxen 500 mg tablet 500 mg PO BID PRN (Reason: Pain) 0RF Nasal [place] (oxymetazoline) 0.05 % [place],Non-Aerosol 1 - 2 spray INTRANASAL PRN PRN (Reason: Allergy Symptoms) 0RF Clear Eyes Natural Tears 0.5-0.6 % Drops 1 drp ophthalmic (eye) PRN PRN (Reason: Dry Eyes) 0RF Breo Ellipta 100-25 mcg/dose blister with device 1 ea INHALATION DAILY 0RF Calcium 600 + D(3) 2 tab PO QAM 0RF Held losartan 100 mg tablet 100 mg PO QAM 0RF Hold Instructions: Resume on 10/09/21. Discontinued amlodipine 5 mg tablet 5 mg PO QPM 0RF Discharge Orders: Discharge Order (Routine); Ordered 09/25/21 Ordered By: Vasquez Cabello Referrals: Yudy Alfred FNP [Primary Care Provider] - (Please follow-up with Yudy DIAZ September 30 at 8:20A.M. If you have any questions or need to schedule. Please call ) Discharge Diet: Regular Discharge Activity: Resume usual activity Patient Instructions: Diltiazem (By mouth) (Cardizem, Cardizem CD, Cardizem LA, Cardizem SR), Aspirin (By mouth), A-fib (Atrial Fibrillation) (DC), Hypokalemia (DC), Near Syncope (DC), Opioid Safety Discharge Attestations Time Spent in Discharge Care*: greater than 30 min Specific Discharge Activities: educating patient, educating and/or supporting family/caregiver, discussing with pcp/other providers, discussing with behavioral health case manager/social workers/dc planners, documenting/other paperwork and evaluating patient/reviewing data Quality Metrics Clinical Quality Measures [ No reported AMI, CVA or VTE this stay] Coding Level of Care Code Acute Chg FW DC note Diagnoses Near syncope R55 Atrial fibrillation I48.91 HTN (hypertension) I10 Hypertension type: primary hypertension Hypokalemia E87.6 Hypothyroidism associated with surgical procedure E89.0 Papillary thyroid carcinoma C73 Chronic bronchitis J41.1 Chronic bronchitis type: mucopurulent Advanced age R54
--- NOTE | 2021-09-25 12:02 | PC.CHAP ---
Pastoral Care Encounter/Spiritual Assessment Type of Contact [] Declined spring forger visit [] Patient/Family/Request visit [] Outpatient visit [] Follow-up visit [] Physician referral [] Code/Alert [x] Routine visit [] Staff referral [] Actively dying [] Patient sleeping [] Family support [] [] Out of room [] Palliative care [] [] Receiving care in room [] Pre-surgical visit [] Trauma [] Long length of stay [] ICU visit [] Other: Relational/Emotional Strength [] Patient feels connected with others/family/visitors/staff [] Distress [] Loneliness/isolation [] Abandonment Spirituality of Patient [] Person of Amy [] Attends Zoroastrian of their Amy [] Believes in Prayer [] Reads Bible or Restorationist materials [] There are Spiritual issues to be addressed Electronic Coils Supervisor Interventions [x] Prayer [x] Active listening [x] Non-anxious presence [x] Spiritual/emotional support [] Crisis/trauma care [] Spiritual counseling [] Bereavement support [] Provided bereavement packet [] Provided Bible/devotional materials [] Provided toy/stuffed animal, coloring book to patient or family member [] Provided Communion [] Anointing/[place] [] Salvation [x] Completed spiritual assessment [] Other: Impact on Illness or Injury [] Angry [] Fearful [] Anxious [] Often cries [] Exhaustion [] Unable to work [] Unable to attend confucianist [] Unable to walk/stand [] Unable to read [] Unable to drive [] Unable to eat/drink [] Unable to sleep [] Unable to be with family [] Patient intubated [] Other: Summary feeling stronger Time spent with patient 5 min
[2021-09-25] MEDS: ferrous sulfate EC 325 mg Tablet PO (12:25)
[2021-09-25] MEDS: cetirizine 10 mg Tablet PO (12:25)
--- NOTE | 2021-09-25 13:21 | PC.NURSE ---
completed walk in the [place] per doctors orders, patient tolerated walk well with no complications.
== END 2021-09-25 16:15 | disposition home or self-care (01) ==
LOC: ER 14:58 → CSU 15:05
PROVIDERS: Admitting Provider Hospitalist; Emergency Provider Family Medicine; PCP Registered Nurse; Visit Provider Internal Medicine
DX: I48.91 Unspecified atrial fibrillation (principal); R55 Syncope and collapse; I10 Essential (primary) hypertension; E87.6 Hypokalemia; E89.0 Postprocedural hypothyroidism; C73 Malignant neoplasm of thyroid gland; J41.1 Mucopurulent chronic bronchitis; R54 Age-related physical debility; J45.909 Unspecified asthma, uncomplicated; Z99.81 Dependence on supplemental oxygen; E03.9 Hypothyroidism, unspecified; F17.210 Nicotine dependence, cigarettes, uncomplicated; R91.8 Other nonspecific abnormal finding of lung field
CPT/HCPCS: 36415; 71046; 80048; 80053; 81001; 83690; 83735; 83880; 84100; 84439; 84443; 84481; 84484; 85025; 85378; 93005; 93306; 94640; 96372; 99285; G0378; J1650

== ENCOUNTER → 2021-10-31 14:28 | Outpatient (BNVA) | payer MEDICARE, MEDICAID, SELFPAY | PROVIDERS: PCP Registered Nurse; Referring Provider Specialist; Visit Provider Internal Medicine | DX: E04.1 Nontoxic single thyroid nodule (principal); C73 Malignant neoplasm of thyroid gland; R00.0 Tachycardia, unspecified; Z87.891 Personal history of nicotine dependence | CPT/HCPCS: 99204 ==

== ENCOUNTER 2021-11-07 12:46 | Outpatient (CLI) | payer MEDICARE, MEDICAID, SELFPAY ==
--- NOTE | 2021-11-07 12:59 | CT_ITS ---
WS: [id number] CT scan of the chest with IV contrast, additional two-dimensional coronal and sagittal reconstruction was performed. 11/07/2021 Clinical Data: LOCALIZED SWELLING.MASS, LUMP,NECK Comparison: CT chest, 11/19/2017. DLP: 610.[address] scans at [facility] use at least one of these dose optimization techniques: automated e xposure control; mA and/or kV adjustment per patient size (includes targeted exams where dose is matc hed to clinical indication); or iterative reconstruction. Findings: There are numerous nodules throughout both lungs which have increased in number and size. Several nod ules exceed 1.0 cm in size. There is also a lung mass measuring 3.0 cm adjacent to the left cardiac b order which was not previously present. The heart size is normal with no pericardial effusion. There is coronary artery calcification. The trachea bifurcates normally into the bronchi. The pulmonary art erial system and thoracic aorta demonstrate no dilatation. There is minimal calcification in the aort ic arch and descending thoracic aortic wall. There are clips in the right supraclavicular region from surgery. There is no axillary or significant mediastinal adenopathy. The upper abdomen demonstrates no change from before. CT/CT chest w con* [id number] Impression: 1. 3 cm mass adjacent to the left cardiac border which was not present and this could represent a primary cancer of the lung. 2. Increase in number and size of nodules throughout the lungs, again these may represent metastatic nodules.
[2021-11-07] MEDS: iohexol 350 mg/mL 100 mL Btl IV (15:33)
== END 2021-11-07 12:47 | disposition home or self-care (01) ==
LOC: RAD 12:51
PROVIDERS: PCP Registered Nurse; Visit Provider Specialist
DX: R22.1 Localized swelling, mass and lump, neck (principal)
CPT/HCPCS: 71260

== ENCOUNTER → 2021-12-05 09:44 | Outpatient (BNVA) | payer MEDICARE, MEDICAID, SELFPAY | PROVIDERS: PCP Registered Nurse; Visit Provider Internal Medicine Critical Care Medicine | DX: R91.1 Solitary pulmonary nodule (principal); C73 Malignant neoplasm of thyroid gland; I10 Essential (primary) hypertension; E78.5 Hyperlipidemia, unspecified; E03.9 Hypothyroidism, unspecified | CPT/HCPCS: 99204 ==

== ENCOUNTER 2021-12-18 13:34 | Oncology outpatient (recurring) (ONCR) | payer MEDICARE, MEDICAID, SELFPAY | END 2021-12-19 23:59 | disposition home or self-care (01) | LOC: ONCMED 13:34 | PROVIDERS: PCP Registered Nurse; Visit Provider Internal Medicine Hematology & Oncology | DX: C73 Malignant neoplasm of thyroid gland (principal); R91.1 Solitary pulmonary nodule; N63.12 Unspecified lump in the right breast, upper inner quadrant; Z87.891 Personal history of nicotine dependence | CPT/HCPCS: 99204; 99215 ==

== ENCOUNTER → 2021-12-27 10:19 | Outpatient (BNVA) | payer MEDICARE, MEDICAID, SELFPAY | PROVIDERS: PCP Registered Nurse; Visit Provider Internal Medicine Critical Care Medicine | DX: R91.1 Solitary pulmonary nodule (principal); C73 Malignant neoplasm of thyroid gland; Z85.850 Personal history of malignant neoplasm of thyroid | CPT/HCPCS: 99213 ==

== ENCOUNTER 2021-12-31 05:36 | Day surgery (SDC) | payer MEDICARE, MEDICAID, SELFPAY ==
[2021-12-27 14:28] VITALS: BMI 23.3
[2021-12-31] VITALS (7 sets, daily range): BP systolic 131–203; BP diastolic 72–111; PULSE 69–77; RESP 18; TEMP 36.1–36.7; O2SAT 90–100
--- NOTE | 2021-12-31 | CT_ITS ---
Guided Bronchoscopy Planning CT images; total exam DLP: 972.63 mGy-cm MTDD
[2021-12-31] MEDS: sodium chloride 0.9% 1,000 ML 30 ML IV (06:19)
--- NOTE | 2021-12-31 06:19 | ECG_ITS ---
[facility] Test Date: 2021-12-31 Pat Name: Arleen Clinton Department: Room: Gender: Female Molecular Pathologist: : 1935 Requested By: Ryan Amin Order Number: [id number] Shine MD: Abhi Smith M.D. Measurements Intervals Bernie Rate: 80 P: 71 AR: 155 QRS: -33 QRSD: 96 T: 65 QT: 406 QTc: 470 Interpretive Statements SINUS RHYTHM LEFT AXIS DEVIATION [QRS AXIS < -30] Compared to ECG 09/24/2021 18:10:33 Left-axis deviation now present T-wave abnormality no longer present Electronically Signed On 12-31-2021 17:35:03 CDT by Abhi Smith M.D. [id number]
--- NOTE | 2021-12-31 06:40 | ANES.PREANE2 ---
Pre-Anesthetic Assessment Height/Weight: Height 1.68 m Weight 65.771 kg Temp Pulse Resp BP Pulse Ox 98.0 F 77 18 203/111 95 12/31/21 06:11 12/31/21 06:11 12/31/21 06:11 12/31/21 06:11 12/31/21 06:11 Preop Diagnosis: Metastatic cancer Operation Date: 12/31/21 07:00 Proposed Procedures p Bronchoscopy(Not Applicable) - Karina Yang MD s Veran(Not Applicable) - Karina Yang MD Familial anesthetic complications: none Was Beta Carlos taken within 24 hours: N/A Was Clonidine taken within 24 hours: N/A Last intake: Intake Last Solid Date 12/30/21 Last Solid Time 21:00 Social No alcohol and No tobacco Exam alert, oriented x 3, clear to auscultation bilaterally and regular rate & rhythm Airway Submandibular: within normal limits Cervical ROM: within normal limits Mallampati: Class II Comments: Comments: missing teeth Pulmonary Asthma CT Chest CT/CT chest w con* [id number] Impression: ? 1. 3 cm mass adjacent to the left cardiac border which was not present and this could represent a primary cancer of the lung. 2. Increase in number and size of nodules throughout the lungs, again these may represent metastatic nodules. ? CV/HEM Atrial Fibrillation and Hypertension EKG 12/31/21 nterpretive Statements SINUS RHYTHM LEFT AXIS DEVIATION? [QRS AXIS < -30] Compared to ECG 09/24/2021 18:10:33 Left-axis deviation now present T-wave abnormality no longer present [id number] TTE 09/24/21 CONCLUSIONS ?1. Normal left ventricular size, systolic function and wall ?thickness, with no regional wall motion abnormalities. Left ?ventricular ejection fraction is estimated at 60 %. Normal ?diastolic function. ?2. Normal right ventricular size and systolic function. ?3. Mild mitral annular calcification. Thickened mitral valve. ?4. No prior similar studies to compare. None reported Hepatic None reported GI None reported Metabolic Thyroid Disease (Hx of papillary carcinoma ) Musc/skel Osteoarthritis/DJD Anesthetic Plan ASA status: 3 Anesthesia: Anesthesia Evaluation and General Other: We discussed risk and benefits of general anesthesia including PONV, sore throat (sometimes severe), corneal abrasion, positioning and peripheral nerve injuries, life threatening allergic reaction, post operative ICU admission requiring prolonged intubation, aspiration, stroke, heart attack, , and rare incidences of recall. Patient consents to proceed with general anesthesia. Risk of > 500 ml blood loss (7ml/kg in children): No Medications/Allergies Home Medications Medication Instructions Recorded Confirmed Last Taken Type Calcium 600 + D(3) 2 tab PO QAM 09/24/21 12/31/21 12/30/21 History albuterol sulfate 90 mcg/actuation 2 puff INHALATION Q6H PRN 09/24/21 12/31/21 12/30/21 History aerosol inhaler cetirizine 10 mg tablet 10 mg PO DAILY@09/24/21 12/31/21 12/30/21 History cyanocobalamin (vitamin B-12) 1,000 mcg PO DAILY 09/24/21 12/31/21 12/30/21 History 1,000 mcg tablet (Vitamin B-12) ferrous sulfate 325 mg (65 mg 325 mg PO DAILY@13 09/24/21 12/31/21 12/30/21 History iron) tablet (FeroSul) fluticasone furoate 100 1 ea INHALATION DAILY 09/24/21 12/31/21 12/30/21 History mcg-vilanterol 25 mcg/dose inhalation powder (Breo Ellipta) hydrocodone 5 mg-acetaminophen 325 1 tab PO Q4H PRN 09/24/21 12/31/21 12/28/21 History mg tablet levothyroxine 25 mcg tablet 25 mcg PO DAILY@09/24/21 12/31/21 12/30/21 History losartan 100 mg tablet 100 mg PO QAM 09/24/21 12/31/21 12/30/21 History montelukast 10 mg tablet 10 mg PO BEDTIME 09/24/21 12/31/21 12/30/21 History naproxen 500 mg tablet 500 mg PO BID PRN 09/24/21 12/31/21 12/30/21 History oxymetazoline 0.05 % nasal spray 1 - 2 spray INTRANASAL PRN PRN 09/24/21 12/31/21 12/30/21 History (Nasal [place] (oxymetazoline)) polyvinyl alcohol-povidone 0.5 1 drp OPHTHALMIC (EYE) PRN PRN 09/24/21 12/31/21 12/30/21 History %-0.6 % eye drops (Clear Eyes Natural Tears) potassium chloride 20 mEq 20 meq PO BID 09/24/21 12/31/21 12/30/21 History tablet,extended release(part/cryst) sennosides 8.6 mg-docusate sodium 1 tab PO .THREE TIMES A WEEK 09/24/21 12/31/21 12/30/21 History 50 mg tablet (Stool Softener-Stimulant Laxative) aspirin 81 mg tablet,delayed 81 mg PO DAILY #30 tab 09/25/21 12/31/21 12/31/21 Rx release diltiazem HCl 120 mg 120 mg PO DAILY #30 cap 09/25/21 12/31/21 12/31/21 Rx capsule,extended release 24 hr (Cardizem CD) Allergies Allergy/AdvReac Type Severity Reaction Status Date / Time Penicillins Allergy ALGY-Swell Verified 12/31/21 06:07 Lip/Tongue/Throat Sulfa (Sulfonamide Allergy ALGY-Swell Verified 12/31/21 06:07 Antibiotics) Lip/Tongue/Throat Current Medications Generic Name Dose Route Start Last Admin Trade Name Hongq PRN Reason Stop Dose Admin Sodium Chloride 1,000 mls @ 30 mls/hr 12/31/21 05:45 12/31/21 06:19 Sodium Chloride 0.9% IV 01/01/22 05:44 30 mls/hr .Q24H THERESA Administration PFSH Anesthesia Medical History Advanced age Asthma Atrial fibrillation Chronic bronchitis Has home oxygen, uses as needed COVID-19 vaccine administered 2 doses Moderna Former smoker, stopped smoking in distant past 3 para 2 with one miscarriage History of multiple pulmonary nodules likely benign, had bronchoscopic evaluation in 2018 HTN (hypertension) Hypokalemia Hypothyroidism associated with surgical procedure Near syncope Papillary thyroid carcinoma metastatic/Stage IV, history of surgery, radiation and radioactive iodine treatment Surgical History History of cataract surgery History of radical neck dissection (~2019) right, for metastatic papillary thyroid carcinoma with split thickness skin graft History of thyroidectomy (~2004) Family History Father No problems noted. Mother Heart attack Other Cancer Hypertension Denies family history of Diabetes CAD (coronary artery disease) Clotting disorder Dementia Hyperlipidemia Psychiatric illness Chronic kidney disease (CKD) Suicide Anesthesia complication Bleeding disorder Lung disease Stroke Social History Smoking and tobacco status: never smoked Alcohol intake: never Data Anesthesia Cardiac Studies: Echocardiogram 09/24/21
--- NOTE | 2021-12-31 06:57 | W.PM.OPSUD ---
Surgery/Procedure H&P Update DATE OF PROCEDURE: December 31, 2021 DATE H&P PERFORMED: 12/27/21 CHANGES TO PREVIOUS DOCUMENTATION: None PREOP DIAGNOSIS: Metastatic cancer PRIMARY INDICATION FOR PROCEDURE: Metastatic cancer PLANNED PROCEDURE: Bronchoscopy inspection of the airway, possible endobronchial biopsy, bronchoalveolar lavage, navigational bronchoscopy guided fine-needle aspiration, transbronchial biopsy, Cytobrush of left upper lobe lung mass, possible endobronchial sound guided transbronchial aspiration of lymph nodes and control of bleeding. Operation Date: 12/31/21 07:00 Proposed Procedures p Bronchoscopy(Not Applicable) - Karina Yang MD s Veran(Not Applicable) - Karina Yang MD
[2021-12-31] MEDS: lidocaine 1% INJ 20 mL 3 ML XX (07:45)
--- NOTE | 2021-12-31 08:25 | P.OP_ITS ---
Operative Report Date of procedure: December 31, 2021 Pre-op diagnosis: Preop Diagnosis Metastatic cancer Post-op diagnosis: Same Brief History: This is an 86-year-old lady with a previous history of papillary thyroid cancer now presented with diffuse metastatic lesion. She is here for bronchoscopic evaluation for left upper lobe lung mass which is one of the many lung lesions the patient has. Procedure: Name of the procedure: Bronchoscopy with inspection of the airway, bronchoalveolar lavage, endobronchial biopsies, navigational bronchoscopy guided fine-needle aspiration of left upper lobe lung mass and control of bleeding. Indication: Suspected metastatic thyroid cancer. Anesthesia: General anesthesia. Local anesthesia: The ailin in the right and left mainstem bronchi were anesthetized with 1% lidocaine, 3 mL. Description of the procedure: The procedure was explained to the patient and the consent was obtained. The patient was brought to the OR. The patient underwent endotracheal intubation for general anesthesia. Following induction of general anesthesia, the bronchoscope was advanced through the ET tube. The lower trachea appeared to be normal. The ailin was sharp. The ailin, the right and left mainstem bronchi are anesthetized with 1% lidocaine. In a systematic manner bilateral bronchial tree was then examined. The bronchoscope was advanced into the left mainstem bronchus. The left upper l obe bronchus was normal. The left upper lobe proper was also normal. Mild mucosal irregularity was noted in the superior segment of the lingula bronchus. The left lower lobe bronchus, segmental and subsegmental bronchi were normal. The bronchoscope was then introduced into the right mainstem bronchus. The right upper lobe, right middle lobe and right lower lobe bronchi were examined up to the third subsegmental level and no abnormalities were identified. There was mucus throughout the airways. Endobronchial biopsies were obtained from the lingular segment. Bronchial wash was performed from the same area. Navigational bronchoscopy guided fine-needle aspiration of the left upper lobe lung mass was then performed. There was mild bleeding which was controlled. Samples: 1. Bronchial wash specimen was sent for cytology. 2. The endobronchial biopsies are sent for histopathology. 3. The fine-needle aspiration of the left upper lobe lung mass was sent for histopathology. Complications: There was no immediate complications. Mild bleeding was controlled.
[2021-12-31 09:15] LABS: Cyto Order Verification Order Verified
--- NOTE | 2021-12-31 10:59 | ANE.PACU2 ---
Inpatient post-anesthesia follow up: Airway intact: Yes Vital signs: Temperature 97.1 F Pulse Rate 70 Respiratory Rate 18 Blood Pressure 131/72 Pulse Oximetry 92 Oxygen Delivery Me thod Room Air Oxygen Flow Rate 8 Fraction of Inspir ed Oxygen Hydration adequate: Yes Nausea and vomiting: No Pain level: 1 Mental status: Baseline
--- NOTE | 2021-12-31 15:36 | ANE.PACU2 ---
Inpatient post-anesthesia follow up: Airway intact: Yes Vital signs: Temperature 97.1 F Pulse Rate 70 Respiratory Rate 18 Blood Pressure 131/72 Pulse Oximetry 92 Oxygen Delivery Me thod Room Air Oxygen Flow Rate 8 Fraction of Inspir ed Oxygen Hydration adequate: Yes Nausea and vomiting: No Pain level: 2 Mental status: Baseline
[2022-01-10 12:23] LABS: PD-L1 (Clone 22C3) by IHC BBPL See Report
== END 2021-12-31 09:07 | disposition home or self-care (01) ==
PROVIDERS: PCP Registered Nurse; Visit Provider Internal Medicine Critical Care Medicine
PROC: 0BJ08ZZ Inspection of Tracheobronchial Tree, Via Natural or Artificial Opening Endoscopic (ICD-10-PCS; CPT 31622; principal; 2021-12-31 07:00)
PROC: 0BJ08ZZ Inspection of Tracheobronchial Tree, Via Natural or Artificial Opening Endoscopic (ICD-10-PCS; CPT 31622; 2021-12-31 07:00)
DX: C34.12 Malignant neoplasm of upper lobe, left bronchus or lung (principal); I48.91 Unspecified atrial fibrillation; Z87.891 Personal history of nicotine dependence; I10 Essential (primary) hypertension; E03.9 Hypothyroidism, unspecified
CPT/HCPCS: 31624; 31627; 31628; 31629; 71250; 77011; 80503; 88108; 88305; 88342; 93005; J0330; J2370; J2405; J2704; J3010; J3490; J7030

== ENCOUNTER → 2022-01-08 13:45 | Outpatient (BNVA) | payer MEDICARE, MEDICAID, SELFPAY | PROVIDERS: PCP Registered Nurse; Visit Provider Internal Medicine Critical Care Medicine | DX: R91.8 Other nonspecific abnormal finding of lung field (principal); C73 Malignant neoplasm of thyroid gland | CPT/HCPCS: 99213; 99214 ==

== ENCOUNTER 2022-01-13 09:57 | Oncology outpatient (recurring) (ONCR) | payer MEDICARE, MEDICAID, SELFPAY | END 2022-01-13 23:59 | disposition home or self-care (01) | PROVIDERS: PCP Registered Nurse; Visit Provider Internal Medicine Hematology & Oncology | DX: C73 Malignant neoplasm of thyroid gland (principal); C78.02 Secondary malignant neoplasm of left lung; R59.0 Localized enlarged lymph nodes; N64.9 Disorder of breast, unspecified; Z87.891 Personal history of nicotine dependence; Z79.899 Other long term (current) drug therapy | CPT/HCPCS: 99214; 99215 ==

== ENCOUNTER 2022-02-19 11:55 | Oncology outpatient (recurring) (ONCR) | payer MEDICARE, MEDICAID, SELFPAY | END 2022-02-19 23:59 | disposition home or self-care (01) | PROVIDERS: PCP Registered Nurse; Visit Provider Internal Medicine Hematology & Oncology | DX: C73 Malignant neoplasm of thyroid gland (principal); C77.0 Secondary and unspecified malignant neoplasm of lymph nodes of head, face and neck; C78.01 Secondary malignant neoplasm of right lung; C78.02 Secondary malignant neoplasm of left lung; Z87.891 Personal history of nicotine dependence | CPT/HCPCS: 36415; 80053; 84432; 84439; 84443; 85025; 86800; 99214 ==

== ENCOUNTER 2022-04-14 11:25 | Oncology outpatient (recurring) (ONCR) | payer MEDICARE, MEDICAID, SELFPAY ==
[2022-04-14 12:15] LABS: Basophils % 0.5 %; Eosinophils # 0.3 10^3/uL (0.0-0.8); Eosinophils % 4.6 %; Hemoglobin 11.1 g/dL (11.5-15.3); Lymphocytes % 15.7 %; Mean Corpuscular HGB Conc 31.7 g/dL (30.0-36.0); Mean Corpuscular Hemoglobin 28.8 pg (28.0-34.0); Mean Corpuscular Volume 90.9 fl (81-99); Mean Platelet Volume 11.7 fL (7.4-10.4); Monocytes # 0.7 10^3/uL (0.2-0.9); Monocytes % 11.4 %; Neutrophils # 4.38 10^3/uL (1.8-7.7); Neutrophils % 67.5 %; Nucleated Red Blood Cells % 0 %; Platelet Count 194 10^3/cmm (130-400); Red Blood Count 3.85 10^6/uL (4.1-5.3); Red Cell Distribution Width 13.2 % (12.1-15.1); White Blood Count 6.5 10^3/uL (4.0-10.0)
[2022-04-14 12:49] LABS: Alanine Aminotransferase 8 U/L (0-33); Albumin Level 3.5 g/dL (3.5-5.2); Alkaline Phosphatase 79 U/L (35-105); Aspartate Amino Transferase 17 U/L (0-32); Blood Urea Nitrogen 12 mg/dL (8-23); Calcium 8.6 mg/dL (8.5-10.5); Carbon Dioxide 29 mmol/L (22-29); Chloride 97 mmol/L (98-107); Globulin 4.7 g/dL (1.3-4.6); Glucose 83 mg/dL (65-115); Osmolality Calculated 275 mOsm/kg (285-295); Sodium 133 mmol/L (136-145); Total Bilirubin 0.4 mg/dL (0.15-1.2); Total Protein 8.2 g/dL (6.6-8.7)
[2022-04-14 12:52] LABS: Anion Gap 10.5 (5-19); Potassium 3.5 mmol/L (3.5-5.1)
== END 2022-04-21 23:59 | disposition home or self-care (01) ==
PROVIDERS: PCP Registered Nurse; Visit Provider Internal Medicine Hematology & Oncology
DX: C73 Malignant neoplasm of thyroid gland (principal); C77.0 Secondary and unspecified malignant neoplasm of lymph nodes of head, face and neck; C78.01 Secondary malignant neoplasm of right lung; C78.02 Secondary malignant neoplasm of left lung; C79.51 Secondary malignant neoplasm of bone; E03.9 Hypothyroidism, unspecified; Z79.899 Other long term (current) drug therapy; Z87.891 Personal history of nicotine dependence
CPT/HCPCS: 36415; 80053; 85025; 99214; 99215

== ENCOUNTER 2022-04-29 08:32 | Oncology outpatient (recurring) (ONCR) | payer MEDICARE, MEDICAID, SELFPAY ==
[2022-04-22 09:09] LABS: Basophils % 0.5 %; Eosinophils # 0.2 10^3/uL (0.0-0.8); Eosinophils % 2.7 %; Hematocrit 35.3 % (37.0-47.0); Lymphocytes # 0.9 10^3/uL (0.8-4.8); Lymphocytes % 11.8 %; Mean Corpuscular Hemoglobin 29.1 pg (28.0-34.0); Mean Corpuscular Volume 85.5 fl (81-99); Mean Platelet Volume 10.5 fL (7.4-10.4); Monocytes # 0.9 10^3/uL (0.2-0.9); Monocytes % 11.7 %; Neutrophils # 5.57 10^3/uL (1.8-7.7); Neutrophils % 72.6 %; Nucleated Red Blood Cells % 0 %; Platelet Count 124 10^3/cmm (130-400); Red Blood Count 4.13 10^6/uL (4.1-5.3); White Blood Count 7.7 10^3/uL (4.0-10.0)
[2022-04-22 09:45] LABS: Alanine Aminotransferase 10 U/L (0-33); Albumin Level 3.5 g/dL (3.5-5.2); Alkaline Phosphatase 105 U/L (35-105); Anion Gap 13.9 (5-19); Aspartate Amino Transferase 17 U/L (0-32); Blood Urea Nitrogen 14 mg/dL (8-23); Calcium 8.7 mg/dL (8.5-10.5); Carbon Dioxide 31 mmol/L (22-29); Chloride 95 mmol/L (98-107); Globulin 4.5 g/dL (1.3-4.6); Glucose 102 mg/dL (65-115); Osmolality Calculated 283 mOsm/kg (285-295); Potassium 3.9 mmol/L (3.5-5.1); Sodium 136 mmol/L (136-145); Thyroid Stimulating Hormone 6.25 uIU/mL (0.27-4.20); Total Bilirubin 0.4 mg/dL (0.15-1.2)
[2022-04-22 09:47] LABS: Slide Review Slide Review Perform
[2022-04-29] MEDS: LORazepam 0.5 mg Tablet PO (10:13)
== END 2022-05-21 23:59 | disposition home or self-care (01) ==
PROVIDERS: Nurse Practitioner; PCP Registered Nurse; Visit Provider Internal Medicine Hematology & Oncology
DX: C73 Malignant neoplasm of thyroid gland (principal); Z90.09 Acquired absence of other part of head and neck; C78.01 Secondary malignant neoplasm of right lung; C78.02 Secondary malignant neoplasm of left lung; C77.8 Secondary and unspecified malignant neoplasm of lymph nodes of multiple regions; C79.51 Secondary malignant neoplasm of bone; Z79.899 Other long term (current) drug therapy; Z87.891 Personal history of nicotine dependence; I10 Essential (primary) hypertension; F41.9 Anxiety disorder, unspecified
CPT/HCPCS: 80053; 84443; 85025; 99214

== ENCOUNTER 2022-05-28 11:39 | Oncology outpatient (recurring) (ONCR) | payer MEDICARE, MEDICAID, SELFPAY | END 2022-06-21 23:59 | disposition home or self-care (01) | PROVIDERS: PCP Registered Nurse; Visit Provider Internal Medicine Hematology & Oncology | DX: C73 Malignant neoplasm of thyroid gland (principal); Z90.09 Acquired absence of other part of head and neck; C78.01 Secondary malignant neoplasm of right lung; C78.02 Secondary malignant neoplasm of left lung; C77.8 Secondary and unspecified malignant neoplasm of lymph nodes of multiple regions; C79.51 Secondary malignant neoplasm of bone; E87.6 Hypokalemia; E87.1 Hypo-osmolality and hyponatremia; Z79.899 Other long term (current) drug therapy; Z87.891 Personal history of nicotine dependence | CPT/HCPCS: 80053; 85025; 99214 ==

== ENCOUNTER 2022-08-12 11:43 | Outpatient (CLI) | payer MEDICARE, MEDICAID, SELFPAY ==
[2022-08-12] MEDS: iohexol 350 mg/mL 500 mL Btl (per mL) IV (12:45)
--- NOTE | 2022-08-12 14:30 | CT_ITS ---
WS: [id number] CT CHEST, ABDOMEN, AND PELVIS TECHNIQUE: Contrast-enhanced CT of the chest, abdomen, and pelvis with coronal and sagittal reformatt ed images. CLINICAL INFORMATION: follow up COMPARISON: CT chest November 07, 2021. PET/CT November 30, 2021 DLP: 576.[address] scans at [facility] use at least one of these dose optimization techniques: automated e xposure control; mA and/or kV adjustment per patient size (includes targeted exams where dose is matc hed to clinical indication); or iterative reconstruction. CT CHEST ABDOMEN PELVIS: Innumerable bilateral pulmonary metastasis. Largest nodule about the LEFT hi lum has progressed slightly today measuring 3.4 x 2.4 cm compared to 3.0 x 2.0 cm previous. Additiona l notable lesion in the RIGHT middle lobe measuring 1.2 x 1.6 cm compared to 1.0 x 1.2 cm previous. A dditional RIGHT lower lobe nodule medially today measuring 10 mm compared to 8 mm previous. The major ity of the additional pulmonary nodules are stable with a few slightly progressed compared to previou s. These are more numerous about the adolfo LEFT greater than RIGHT and both lower lobes. Stable RIGHT lower neck/superior mediastinal lymph node measuring 3.2 x 1.9 CM. Previously described FDG avid RIGH T breast nodule appears smaller today measuring 8 compared to 10 mm previously mm. Normal caliber thoracic aorta. Aortic calcification. Mild thoracic curve. Mild thoracic kyphosis. New patchy infiltrates in the lingula. Diffuse fatty infiltration liver. Hepatic granulomas. Cholelithiasis. Normal portal vein and splenic vein. Splenic granulomas. Normal GE junction. Urine distended bladder. RIGHT ovarian low-attenuation cystic-appearing lesion measuring 3.5 cm. This is unchanged from previous. Normal spleen. Splenic granulomas. Normal caliber abdominal aorta. Aorti c calcification. Normal renal parenchymal enhancement. No hydronephrosis. Small renal cysts. Calcifie d uterine fibroids. Sigmoid diverticulosis. No evidence of acute diverticulitis. No periaortic or per itoneal lymphadenopathy. No inguinal lymphadenopathy. Chronic anterior wedging L4. Disc space narrowi ng worse at L2-L3. CT/CT chest abdpel w/*[id number] IMPRESSION: 1. Innumerable bilateral pulmonary metastasis a few slightly progressed compar ed to previous. The majority of the lesions are stable when compared to previou s. 2. No progressed mediastinal lymphadenopathy. 3. Stable RIGHT lower neck/superior mediastinal masslike lymph node measuring 3.2 x 1.9 CM. 4. New slight patchy infiltrate within the lingula. 5. No evidence of progressed disease in the abdomen or pelvis. 6. Cholelithiasis. 7. Stable low-attenuation cystic-appearing RIGHT adnexal lesion. This appears stable since the prior PET/CT November 30, 2021 measuring 3.5 x 4.2 CM. 8. No definite lytic lesions in the RIGHT L5 pedicle to correspond to the prev iously described area of FDG uptake
== END 2022-08-12 11:44 | disposition home or self-care (01) ==
LOC: RAD 11:43
PROVIDERS: PCP Registered Nurse; Visit Provider Internal Medicine Hematology & Oncology
DX: C73 Malignant neoplasm of thyroid gland (principal); R91.1 Solitary pulmonary nodule
CPT/HCPCS: 71260; 74177; Q9967

== ENCOUNTER 2022-08-19 14:46 | Oncology outpatient (recurring) (ONCR) | payer MEDICARE, MEDICAID, SELFPAY ==
[2022-08-19 16:37] LABS: Basophils % 0.7 %; Eosinophils # 0.1 10^3/uL (0.0-0.8); Eosinophils % 1.8 %; Hematocrit 30.8 % (37.0-47.0); Hemoglobin 10.3 g/dL (11.5-15.3); Lymphocytes % 15.9 %; Mean Corpuscular HGB Conc 33.4 g/dL (30.0-36.0); Mean Corpuscular Hemoglobin 28.3 pg (28.0-34.0); Mean Corpuscular Volume 84.6 fl (81-99); Mean Platelet Volume 10.7 fL (7.4-10.4); Monocytes # 0.7 10^3/uL (0.2-0.9); Monocytes % 11.8 %; Neutrophils # 4.25 10^3/uL (1.8-7.7); Neutrophils % 69.6 %; Nucleated Red Blood Cells % 0 %; Platelet Count 212 10^3/cmm (130-400); Red Blood Count 3.64 10^6/uL (4.1-5.3); Red Cell Distribution Width 12.7 % (12.1-15.1); White Blood Count 6.1 10^3/uL (4.0-10.0)
[2022-08-19 17:33] LABS: Alanine Aminotransferase 7 U/L (0-33); Albumin Level 3.9 g/dL (3.5-5.2); Alkaline Phosphatase 70 U/L (35-105); Anion Gap 16.5 (5-19); Aspartate Amino Transferase 16 U/L (0-32); Blood Urea Nitrogen 13 mg/dL (8-23); Calcium 8.8 mg/dL (8.5-10.5); Carbon Dioxide 31 mmol/L (22-29); Chloride 84 mmol/L (98-107); Glucose 100 mg/dL (65-115); Osmolality Calculated 266 mOsm/kg (285-295); Potassium 3.5 mmol/L (3.5-5.1); Sodium 128 mmol/L (136-145); Total Bilirubin 0.3 mg/dL (0.15-1.2); Total Protein 7.9 g/dL (6.6-8.7)
[2022-08-19 18:04] LABS: Ferritin 258 ng/mL (15-150); Iron 22 ug/dL (37-145); Percent Saturation 9.1 % (20-50); Total Iron Binding Capacity 240 mcg/dl; Unsaturated Iron Binding 218 ug/dL (112-347)
== END 2022-08-19 23:59 | disposition home or self-care (01) ==
LOC: ONCMED 14:46
PROVIDERS: PCP Registered Nurse; Visit Provider Internal Medicine Hematology & Oncology
DX: C78.02 Secondary malignant neoplasm of left lung; R91.8 Other nonspecific abnormal finding of lung field; D64.9 Anemia, unspecified; Z79.899 Other long term (current) drug therapy; C78.01 Secondary malignant neoplasm of right lung; C77.9 Secondary and unspecified malignant neoplasm of lymph node, unspecified; Z85.850 Personal history of malignant neoplasm of thyroid
CPT/HCPCS: 36415; 80053; 82728; 83540; 83550; 85025; 99214

== ENCOUNTER 2022-10-22 10:27 | Outpatient (CLI) | payer MEDICARE, MEDICAID, SELFPAY ==
--- NOTE | 2022-10-22 10:34 | MM_ITS ---
WS: [id number] BILATERAL 3D TOMOSYNTHESIS DIGITAL DIAGNOSTIC MAMMOGRAPHY WITH CAD CLINICAL INFORMATION: Follow up HISTORY: RIGHT breast nodules. Biopsy RIGHT breast nodule previously recommend 2019. Patient did no t return for follow-up biopsy. COMPARISON: July 05, 2019 TECHNIQUE: Bilateral CC, MLO, and ML views. FINDINGS: Scattered fibroglandular densities bilaterally. Vascular calcification. Palpable marker is RIGHT brayan st. Adjacent to the more deep palpable marker RIGHT breast there is a dense asymmetric slightly spicu lated lesion which was present on the prior examination and previously described. Spiculated asymmetr ic density posterior depth inner quadrant near the chest wall today measures 1.4 cm in maximum dimens ion appears to have slightly increased in size. Ultrasound described below. Biopsy was previously rec ommended for this lesion. LEFT breast is unchanged and unremarkable. . ULTRASOUND BREAST RIGHT TECHNIQUE: Ultrasound right breast focused area of concern. CLINICAL INFORMATION: Follow up COMPARISON: 2019 FINDINGS: Ultrasound RIGHT breast at the 1:00 position in the area of palpable marker demonstrates a solid hypo echoic taller than wide lesion which appears to have increased in size since 2019. Findings suspiciou s for neoplasm. Today this measures 1.3 x 0.7 x 1.4 cm. Recommend further evaluation with ultrasound- guided biopsy. No visualized enlarged lymph nodes in the RIGHT axilla. Ultrasound at the 12:00 position 3 cm from the nipple in the additional area of palpable concern, dem onstrates normal underlying dense parenchymal tissue. No abnormalities in this area. Previously described indeterminate nodule at the 11:00 position 4 cm from the nipple not visualized t andi. This could be further evaluated at the time of biopsy. MM/[place] [id number] IMPRESSION: BI-RADS: 5-Highly Suggestive of Malignancy FOLLOW UP: US Guided Biopsy Recommended RECOMMEND ULTRASOUND-GUIDED BIOPSY OF THE SUSPICIOUS RIGHT BREAST LESION. THIS IS INCREASED IN SIZE SINCE 2020. BIOPSY WAS PREVIOUSLY RECOMMENDED. Also recommend additional evaluation of the 11:00 position, RIGHT breast, 4 cm from the nipple in the area of prior indeterminate 5 mm lesion
== END 2022-10-22 10:28 | disposition home or self-care (01) ==
PROVIDERS: PCP Registered Nurse; Visit Provider Internal Medicine Hematology & Oncology
DX: C73 Malignant neoplasm of thyroid gland (principal); N63.12 Unspecified lump in the right breast, upper inner quadrant; N63.11 Unspecified lump in the right breast, upper outer quadrant
CPT/HCPCS: 76642; 77062; G0279

== ENCOUNTER → 2022-11-27 13:36 | Outpatient (BNVA) | payer MEDICARE, MEDICAID, SELFPAY | PROVIDERS: PCP Registered Nurse; Visit Provider Internal Medicine Hematology & Oncology | DX: Z53.9 Procedure and treatment not carried out, unspecified reason (principal) | CPT/HCPCS: 99214 ==

== ENCOUNTER 2022-11-27 13:39 | Oncology outpatient (recurring) (ONCR) | payer MEDICARE, MEDICAID, SELFPAY ==
[2022-11-27 13:48] VITALS: BP 137/75; PULSE 62; RESP 16; TEMP 36.5; O2SAT 93
[2022-11-27 14:02] LABS: Basophils % 0.4 %; Eosinophils # 0.1 10^3/uL (0.0-0.8); Eosinophils % 1.4 %; Hematocrit 31.1 % (37.0-47.0); Hemoglobin 10.4 g/dL (11.5-15.3); Lymphocytes # 0.8 10^3/uL (0.8-4.8); Lymphocytes % 13.6 %; Mean Corpuscular HGB Conc 33.4 g/dL (30.0-36.0); Mean Corpuscular Hemoglobin 28.4 pg (28.0-34.0); Monocytes # 0.6 10^3/uL (0.2-0.9); Monocytes % 11.6 %; Neutrophils # 4.03 10^3/uL (1.8-7.7); Neutrophils % 72.8 %; Nucleated Red Blood Cells % 0 %; Platelet Count 212 10^3/cmm (130-400); Red Blood Count 3.66 10^6/uL (4.1-5.3); White Blood Count 5.5 10^3/uL (4.0-10.0)
[2022-11-27 14:14] LABS: Alanine Aminotransferase 10 U/L (0-33); Albumin Level 3.9 g/dL (3.5-5.2); Alkaline Phosphatase 62 U/L (35-105); Anion Gap 14.6 (5-19); Aspartate Amino Transferase 19 U/L (0-32); Blood Urea Nitrogen 13 mg/dL (8-23); Calcium 8.1 mg/dL (8.5-10.5); Carbon Dioxide 29 mmol/L (22-29); Chloride 85 mmol/L (98-107); Globulin 3.6 g/dL (1.3-4.6); Glucose 91 mg/dL (65-115); Osmolality Calculated 260 mOsm/kg (285-295); Potassium 3.6 mmol/L (3.5-5.1); Sodium 125 mmol/L (136-145); Total Bilirubin 0.4 mg/dL (0.15-1.2); Total Protein 7.5 g/dL (6.6-8.7)
== END 2022-12-19 23:59 | disposition home or self-care (01) ==
PROVIDERS: PCP Registered Nurse; Visit Provider Internal Medicine Hematology & Oncology
DX: C73 Malignant neoplasm of thyroid gland (principal)
CPT/HCPCS: 36415; 80053; 85025

== ENCOUNTER → 2023-02-24 12:49 | Outpatient (BNVA) | payer MEDICARE, MEDICAID, SELFPAY | PROVIDERS: PCP Registered Nurse; Visit Provider Physician Assistant | DX: S62.607A Fracture of unspecified phalanx of left little finger, initial encounter for closed fracture; W01.0XXA Fall on same level from slipping, tripping and stumbling without subsequent striking against object, initial encounter; M19.042 Primary osteoarthritis, left hand | CPT/HCPCS: 73130; 99203 ==

== ENCOUNTER → 2023-03-10 08:56 | Outpatient (BNVA) | payer MEDICARE, MEDICAID, SELFPAY | PROVIDERS: PCP Registered Nurse; Visit Provider Physician Assistant | DX: S62.607D Fracture of unspecified phalanx of left little finger, subsequent encounter for fracture with routine healing (principal); X58.XXXD Exposure to other specified factors, subsequent encounter | CPT/HCPCS: 73130; 99213 ==